=== PATIENT | female | born 1955 | race Caucasian/White ===

== ENCOUNTER → 2016-06-05 | Outpatient (CLI) | payer OTHER ==
--- NOTE | 2016-06-05 13:04 | DX ---
Left Elbow, 4 Views, at 12:08 p.m. Clinical History: 60-year-old female who fell on ice today and complains of pain and swelling along t he posterior left elbow. Comparison Study: None. Findings: Bone mineralization is preserved. There is no acute fracture, dislocation, or elbow joint e ffusion, loose osteochondral body. The supracondylar humerus and the radial head appear intact, as do es the olecranon. There is some proximal dorsal forearm soft tissue swelling. On image #4 there is a punctate ossification along the proximal medial aspect of the radial head. This could represent a tin y loose osteochondral body of indeterminate age. Impression: 1. Query tiny loose osteochondral body along the medial margin of the radial head, of indeterminate a ge-chronicity. 2. Proximal dorsal forearm soft tissue swelling.
== END ==
LOC: BRMIMAGING 12:02
PROVIDERS: ATTEND Internal Medicine
DX: M25.522 Pain in left elbow (principal); R22.32 Localized swelling, mass and lump, left upper limb; W00.0XXA Fall on same level due to ice and snow, initial encounter
CPT/HCPCS: 73080-PO